=== PATIENT | female | born 2005 | race Caucasian/White ===

== ENCOUNTER 2025-09-29 22:12 | Emergency (ER) | payer OTHER ==
[~2025-09-29] VITALS: Ht 175.3 cm; Wt 68.0 kg
[2025-09-29 23:43] VITALS: BP 100/56; TEMP 99; O2SAT 96
[2025-09-30] MEDS ORDERED: IBUP-1490 PO (00:04)
[2025-09-30] MEDS ORDERED: AMOX-430 PO (00:04)
== END 2025-09-30 00:11 | disposition home or self-care (01) ==
LOC: ER 23:08
DX: J03.90 Acute tonsillitis, unspecified (principal)
CPT/HCPCS: 86403-TC; 87070-TC